=== PATIENT | female | born 1945 | race Caucasian/White ===

== ENCOUNTER 2017-10-03 10:01 | Outpatient (CLI) | payer MEDICARE | END 2017-10-03 10:02 | disposition home or self-care (01) | LOC: BICMAMMO 10:01 | PROVIDERS: ATTEND Family Medicine | DX: Z12.31 Encounter for screening mammogram for malignant neoplasm of breast (principal); R92.1 Mammographic calcification found on diagnostic imaging of breast | CPT/HCPCS: 77063; 77067 ==

== ENCOUNTER 2019-03-09 13:25 | Outpatient (CLI) | payer MEDICARE, MEDICAID ==
--- NOTE | 2019-03-09 13:59 | ULT ---
US Renal Bilateral STANDARD: 03/09/2019 12:00 AM CLINICAL HISTORY: Recurrent urinary tract infections. STUDY: Renal ultrasound COMPARISON: None. FINDINGS: Right kidney: Echogenicity: Normal. Masses/cysts: None. Hydronephrosis: None. Calcifications: None. Length: 7.6 cm Left kidney: Echogenicity: Normal. Masses/cysts: None. Hydronephrosis: None. Calcifications: None. Length: 8.6 cm Limited visualization of the urinary bladder is unremarkable. Both ureteral jets were visualized. IMPRESSION: Unremarkable renal ultrasound
== END 2019-03-09 13:26 | disposition home or self-care (01) ==
LOC: BICULT 13:25
PROVIDERS: ATTEND Family Medicine
DX: N39.0 Urinary tract infection, site not specified (principal)
CPT/HCPCS: 76770

== ENCOUNTER 2019-04-10 10:57 | Outpatient (CLI) | payer MEDICARE, MEDICAID ==
--- NOTE | 2019-04-10 11:38 | ULT ---
Bilateral renal ultrasound CLINICAL INDICATION: Recurrent urinary tract infection COMPARISON: 03/09/2019 FINDINGS: Right kidney: There is no evidence of a renal mass, renal calculus, or hydronephrosis seen. The right kidney measures 8.3 cm x 3.6 cm. Left kidney: There is no evidence of a renal mass, renal calculus, or hydronephrosis. The left kidney measures 9.3 cm x 4.4 cm. Urinary bladder: Few minimal linear echogenic foci are seen in the dependent portion urinary bladder which could be artifactual versus tiny amount of debris. The urinary bladder otherwise has a normal sonographic appearance with urinary bladder volume of 347.8 mL. A post void urinary bladder volume of 331 mL was obtained. IMPRESSION: 1. Normal appearing bilateral kidneys without evidence of hydronephrosis. 2. Large post void residual of 331 mL.
== END 2019-04-10 10:58 | disposition home or self-care (01) ==
LOC: SCSULT 10:57
PROVIDERS: ATTEND Family Medicine
DX: N39.0 Urinary tract infection, site not specified (principal)
CPT/HCPCS: 76770

== ENCOUNTER 2020-06-10 10:09 | Outpatient (CLI) | payer MEDICARE, MEDICAID | END 2020-06-10 10:10 | disposition home or self-care (01) | LOC: PET 10:09 | PROVIDERS: ATTEND Internal Medicine Hematology & Oncology | DX: C06.9 Malignant neoplasm of mouth, unspecified (principal); C41.1 Malignant neoplasm of mandible | CPT/HCPCS: 78815; A9552 ==

== ENCOUNTER 2020-12-02 09:57 | Outpatient (CLI) | payer MEDICARE, MEDICAID | END 2020-12-02 09:58 | disposition home or self-care (01) | LOC: PET 09:57 → MERGE 09:57 → PET 09:58 | PROVIDERS: ATTEND Internal Medicine | DX: C06.0 Malignant neoplasm of cheek mucosa (principal); C14.8 Malignant neoplasm of overlapping sites of lip, oral cavity and pharynx | CPT/HCPCS: 78815; A9552 ==

== ENCOUNTER 2021-02-04 14:12 | Outpatient (CLI) | payer MEDICARE, MEDICAID | END 2021-02-04 14:13 | disposition home or self-care (01) | LOC: BICULT 14:12 | PROVIDERS: ATTEND Family Medicine | DX: E04.9 Nontoxic goiter, unspecified (principal) | CPT/HCPCS: 76536 ==